=== PATIENT | female | born 1985 | race Caucasian/White ===

== ENCOUNTER 2021-06-17 16:13 | Emergency (ER) | payer BC | END 2021-06-17 16:30 | disposition home or self-care (01) | LOC: LB.ED 16:13 | DX: H66.002 Acute suppurative otitis media without spontaneous rupture of ear drum, left ear (principal); J01.00 Acute maxillary sinusitis, unspecified | CPT/HCPCS: 99283 ==

== ENCOUNTER 2023-01-13 15:12 | Emergency (ER) | payer BC, OTHER ==
[2023-01-13] MEDS ORDERED: Acetaminophen/HYDROcodone 325-5 MG Tab PO ONE (16:14)
[2023-01-13] MEDS ORDERED: Ondansetron 4 MG Tab.DIS PO ONE (16:15)
[2023-01-13] MEDS ORDERED: Ondansetron 4 MG Tab.DIS ONE (16:17)
[2023-01-13] MEDS ORDERED: Acetaminophen/HYDROcodone 325-5 MG Tab ONE ×2 (16:17→17:00)
[2023-01-13 16:27] LABS: BASOPHILS ABSOLUTE AUTO 0.04 K/uL (0.02-0.10); BASOPHILS PERCENT AUTO 0.3 % (0.0-0.5); EOSINOPHILS ABSOLUTE AUTO 0.34 K/uL (0.04-0.40); EOSINOPHILS PERCENT AUTO 2.5 % (1.0-5.0); HEMATOCRIT 39.8 % (37.0-47.0); HEMOGLOBIN 12.9 g/dL (11.5-16.5); LYMPHOCYTES PERCENT AUTO 14.2 % (20.0-40.0); MEAN CORPUSCULAR HEMOGLOBIN 28.1 pg (27.0-32.0); MEAN CORPUSCULAR HGB CONC 32.4 g/dL (31.0-35.0); MEAN CORPUSCULAR VOLUME 87 fL (76-96); MEAN PLATELET VOLUME 9.6 fL (6.0-10.0); MONOCYTES PERCENT AUTO 6.7 % (3.0-10.0); NEUTROPHILS ABSOLUTE AUTO 10.18 K/uL (2.00-7.50); NEUTROPHILS PERCENT AUTO 76.3 % (45.0-70.0); PLATELET COUNT,PLT 350 K/uL (150-500); RED BLOOD CELL COUNT 4.59 M/uL (3.80-5.80); RED CELL DISTRIBUTION WIDTH 13.9 % (11.0-16.0); WHITE BLOOD CELL COUNT,WBC 13.4 K/uL (4.0-11.0)
[2023-01-13 16:48] LABS: A/G RATIO 0.9 (0.8-2.0); ALBUMIN 3.4 g/dL (3.4-5.0); ANION GAP 9.3 mmol/L (5.0-15.0); BILIRUBIN TOTAL 0.2 mg/dL (0.0-1.0); BUN/CREATININE RATIO 8.5 (6-25); CALCIUM 9.2 mg/dL (8.5-10.1); CARBON DIOXIDE,CO2 28.6 mmol/L (21.0-32.0); CREATININE 0.82 mg/dL (0.55-1.02); EST CRCL DRUG DOSING (CG) 80.33 mL/min; POTASSIUM,K 3.9 mmol/L (3.5-5.1); PROTEIN TOTAL,TP 7.2 g/dL (6.4-8.2)
[2023-01-13 16:57] LABS: APPEARANCE,URINE CLEAR (CLEAR); BILIRUBIN,URINE NEGATIVE (NEGATIVE); COLOR,URINE YELLOW; GLUCOSE,URINE NEGATIVE (NEGATIVE); KETONES,URINE NEGATIVE (NEGATIVE); LEUKOCYTE ESTERASE,URINE NEGATIVE (NEGATIVE); NITRITE,URINE NEGATIVE (NEGATIVE); OCCULT BLOOD,URINE NEGATIVE (NEGATIVE); PH,URINE 7.5 (5.0-8.0); PROTEIN,URINE NEGATIVE (NEGATIVE); UROBILINOGEN,URINE 0.2 E.U./dL (0.2-1.0)
[2023-01-13] MEDS ORDERED: metroNIDAZOLE 500 MG Tab ONE (17:00)
[2023-01-13] MEDS ORDERED: Ciprofloxacin 500 MG Tab ONE (17:00)
[2023-01-13 17:01] LABS: RBC,URINE NOT SEEN /HPF; SQUAMOUS EPITHELIAL CELLS,UR OCCASIONAL /HPF; WBC,URINE NOT SEEN /HPF
== END 2023-01-13 17:30 | disposition home or self-care (01) ==
LOC: LB.ED 15:12
DX: K57.32 Diverticulitis of large intestine without perforation or abscess without bleeding (principal)
CPT/HCPCS: 36415; 74176; 80053; 81001; 83690; 85025; 99284; A9270; Q0162

== ENCOUNTER 2023-03-19 13:41 | Emergency (ER) | payer OTHER ==
[2023-03-19] MEDS ORDERED: Sodium Chloride 0.9% 1,000 ML IV ONE (14:11)
[2023-03-19] MEDS ORDERED: Sodium Chloride 0.9% 10 ML Syringe FLUSH PRN (14:11)
[2023-03-19] MEDS ORDERED: Ondansetron 4 MG/2 ML SDV IVPUSH ONE (14:12)
[2023-03-19] MEDS ORDERED: Morphine 2 MG/ML SYRINGE ONE (14:30)
[2023-03-19] MEDS ORDERED: Ondansetron 4 MG/2 ML SDV ONE (14:31)
[2023-03-19 14:32] LABS: BASOPHILS ABSOLUTE AUTO 0.05 K/uL (0.02-0.10); BASOPHILS PERCENT AUTO 0.3 % (0.0-0.5); EOSINOPHILS ABSOLUTE AUTO 0.49 K/uL (0.04-0.40); EOSINOPHILS PERCENT AUTO 3.2 % (1.0-5.0); HEMATOCRIT 40.5 % (37.0-47.0); HEMOGLOBIN 12.9 g/dL (11.5-16.5); LYMPHOCYTES ABSOLUTE AUTO 2.19 K/uL (1.50-4.00); LYMPHOCYTES PERCENT AUTO 14.1 % (20.0-40.0); MEAN CORPUSCULAR HEMOGLOBIN 27.7 pg (27.0-32.0); MEAN CORPUSCULAR HGB CONC 31.9 g/dL (31.0-35.0); MEAN CORPUSCULAR VOLUME 87 fL (76-96); MEAN PLATELET VOLUME 9.8 fL (6.0-10.0); MONOCYTES ABSOLUTE AUTO 1.11 K/uL (0.20-0.80); MONOCYTES PERCENT AUTO 7.2 % (3.0-10.0); NEUTROPHILS ABSOLUTE AUTO 11.65 K/uL (2.00-7.50); NEUTROPHILS PERCENT AUTO 75.2 % (45.0-70.0); PLATELET COUNT,PLT 366 K/uL (150-500); RED BLOOD CELL COUNT 4.66 M/uL (3.80-5.80); RED CELL DISTRIBUTION WIDTH 14.3 % (11.0-16.0); WHITE BLOOD CELL COUNT,WBC 15.5 K/uL (4.0-11.0)
[2023-03-19] MEDS: Morphine 2 MG/ML SYRINGE IVPUSH ONE ×2 (14:35→15:19)
[2023-03-19 14:50] LABS: A/G RATIO 0.9 (0.8-2.0); ALBUMIN 3.4 g/dL (3.4-5.0); ANION GAP 10.3 mmol/L (5.0-15.0); BILIRUBIN TOTAL 0.4 mg/dL (0.0-1.0); CALCIUM 9.1 mg/dL (8.5-10.1); CARBON DIOXIDE,CO2 28.6 mmol/L (21.0-32.0); EST CRCL DRUG DOSING (CG) 65.87 mL/min; MAGNESIUM 1.8 mg/dL (1.8-2.4); POTASSIUM,K 3.9 mmol/L (3.5-5.1); PROTEIN TOTAL,TP 7.2 g/dL (6.4-8.2)
[2023-03-19] MEDS ORDERED: Ciprofloxacin 500 MG Tab ONE (15:00)
[2023-03-19] MEDS ORDERED: Ondansetron 4 MG Tab.DIS ONE (15:00)
[2023-03-19] MEDS ORDERED: metroNIDAZOLE 500 MG Tab ONE (15:00)
[2023-03-19] MEDS ORDERED: traMADol 50 MG Tab ONE (15:00)
[2023-03-19 15:11] LABS: APPEARANCE,URINE CLEAR (CLEAR); BILIRUBIN,URINE NEGATIVE (NEGATIVE); COLOR,URINE YELLOW; GLUCOSE,URINE NEGATIVE (NEGATIVE); KETONES,URINE NEGATIVE (NEGATIVE); LEUKOCYTE ESTERASE,URINE NEGATIVE (NEGATIVE); NITRITE,URINE NEGATIVE (NEGATIVE); OCCULT BLOOD,URINE NEGATIVE (NEGATIVE); PROTEIN,URINE NEGATIVE (NEGATIVE); UROBILINOGEN,URINE 0.2 E.U./dL (0.2-1.0)
[2023-03-19] MEDS ORDERED: Morphine 2 MG/ML SYRINGE IVPUSH ONE (15:11)
[2023-03-19 16:12] VITALS: BP 118/74; PULSE 71
== END 2023-03-19 15:45 | disposition home or self-care (01) ==
LOC: LB.ED 13:41
DX: K57.92 Diverticulitis of intestine, part unspecified, without perforation or abscess without bleeding (principal); Z90.710 Acquired absence of both cervix and uterus
CPT/HCPCS: 36415; 80053; 81003; 83735; 85025; 96361; 96374; 96375; 96376; 99284-25; A9270-GY; J2270; J2405; J3490; J7030; Q0162

== ENCOUNTER 2023-04-16 12:10 | Emergency (ER) | payer OTHER ==
[2023-04-16] MEDS ORDERED: HYDROmorphone 2 MG/ML Syringe IVPUSH ONE (12:35)
[2023-04-16] MEDS ORDERED: Ondansetron 4 MG/2 ML SDV IVPUSH ONE (12:35)
[2023-04-16] MEDS ORDERED: Naloxone 2 MG/2 ML Syringe IVPUSH PRN (12:35)
[2023-04-16] MEDS ORDERED: HYDROmorphone 2 MG/ML Syringe ONE (12:41)
[2023-04-16] MEDS ORDERED: Ondansetron 4 MG/2 ML SDV ONE (12:41)
[2023-04-16 12:59] LABS: BASOPHILS ABSOLUTE AUTO 0.06 K/uL (0.02-0.10); BASOPHILS PERCENT AUTO 0.5 % (0.0-0.5); EOSINOPHILS ABSOLUTE AUTO 0.36 K/uL (0.04-0.40); EOSINOPHILS PERCENT AUTO 2.8 % (1.0-5.0); HEMATOCRIT 41.3 % (37.0-47.0); HEMOGLOBIN 13.3 g/dL (11.5-16.5); LYMPHOCYTES PERCENT AUTO 18.1 % (20.0-40.0); MEAN CORPUSCULAR HEMOGLOBIN 27.6 pg (27.0-32.0); MEAN CORPUSCULAR HGB CONC 32.2 g/dL (31.0-35.0); MEAN CORPUSCULAR VOLUME 86 fL (76-96); MEAN PLATELET VOLUME 9.8 fL (6.0-10.0); MONOCYTES ABSOLUTE AUTO 0.83 K/uL (0.20-0.80); MONOCYTES PERCENT AUTO 6.5 % (3.0-10.0); NEUTROPHILS ABSOLUTE AUTO 9.15 K/uL (2.00-7.50); NEUTROPHILS PERCENT AUTO 72.1 % (45.0-70.0); PLATELET COUNT,PLT 391 K/uL (150-500); RED BLOOD CELL COUNT 4.82 M/uL (3.80-5.80); RED CELL DISTRIBUTION WIDTH 14.4 % (11.0-16.0); WHITE BLOOD CELL COUNT,WBC 12.7 K/uL (4.0-11.0)
[2023-04-16] MEDS ORDERED: Iopamidol 612 MG/ML 100 ML Bottle IV PRN (13:19)
[2023-04-16 13:22] LABS: ALBUMIN 3.7 g/dL (3.4-5.0); ANION GAP 13.6 mmol/L (5.0-15.0); BUN/CREATININE RATIO 12.8 (6-25); CALCIUM 8.9 mg/dL (8.5-10.1); CARBON DIOXIDE,CO2 24.9 mmol/L (21.0-32.0); CREATININE 0.78 mg/dL (0.55-1.02); EST CRCL DRUG DOSING (CG) 84.45 mL/min; POTASSIUM,K 3.5 mmol/L (3.5-5.1); PROTEIN TOTAL,TP 7.5 g/dL (6.4-8.2)
[2023-04-16 13:22] LABS: APPEARANCE,URINE CLEAR (CLEAR); BILIRUBIN,URINE NEGATIVE (NEGATIVE); COLOR,URINE YELLOW; GLUCOSE,URINE NEGATIVE (NEGATIVE); KETONES,URINE NEGATIVE (NEGATIVE); LEUKOCYTE ESTERASE,URINE NEGATIVE (NEGATIVE); NITRITE,URINE NEGATIVE (NEGATIVE); OCCULT BLOOD,URINE NEGATIVE (NEGATIVE); PROTEIN,URINE NEGATIVE (NEGATIVE); UROBILINOGEN,URINE 0.2 E.U./dL (0.2-1.0)
[2023-04-16 13:23] LABS: BILIRUBIN TOTAL 0.3 mg/dL (0.0-1.0)
[2023-04-16 13:26] LABS: RBC,URINE 0-5 /HPF; SQUAMOUS EPITHELIAL CELLS,UR RARE /HPF; WBC,URINE NOT SEEN /HPF
[2023-04-16] MEDS ORDERED: Sodium Chloride 0.9% 50 ML SDV FLUSH SCH (13:30)
[2023-04-16] MEDS ORDERED: Sulfamethoxazole/Trimethoprim 800-160 MG Tab ONE (14:00)
[2023-04-16] MEDS ORDERED: traMADol 50 MG Tab ONE (14:00)
== END 2023-04-16 14:20 | disposition home or self-care (01) ==
LOC: LB.ED 12:10
DX: K57.32 Diverticulitis of large intestine without perforation or abscess without bleeding (principal); E66.9 Obesity, unspecified; Z79.899 Other long term (current) drug therapy; Z90.710 Acquired absence of both cervix and uterus; Z68.37 Body mass index [BMI] 37.0-37.9, adult
CPT/HCPCS: 36415; 74177; 80053; 81001; 83690; 85025; 96374; 96375; 99284; 99284-25; A9270-GY; J1170; J2405; J3490; Q9967

== ENCOUNTER 2023-05-16 11:42 | Emergency (ER) | payer OTHER | END 2023-05-16 13:23 | disposition home or self-care (01) | LOC: LB.ED 11:42 | DX: S40.012A Contusion of left shoulder, initial encounter (principal); E66.9 Obesity, unspecified; Z68.37 Body mass index [BMI] 37.0-37.9, adult; Z90.710 Acquired absence of both cervix and uterus; W18.2XXA Fall in (into) shower or empty bathtub, initial encounter; Y92.002 Bathroom of unspecified non-institutional (private) residence as the place of occurrence of the external cause | CPT/HCPCS: 73030-RT; 73060-RT; 99283 ==